=== PATIENT | male | born 1960 | race Hispanic/Latino ===

== ENCOUNTER → 2019-12-13 | Outpatient (CLI) | payer OTHER ==
[~2019-12-13] MED LIST: AMLO10TA7 PO; ASPI-1197 PO; CHOL100040 PO; METF-446 PO; METO25 PO; MULT-1258 PO; PRAV40TA3 PO; TELM20TA8 PO; TELM40TA5 PO; TYL3 PO
== END | disposition home or self-care (01) ==
LOC: SHCH 10:50
PROVIDERS: ATTEND Internal Medicine Cardiovascular Disease
DX: I07.9 Rheumatic tricuspid valve disease, unspecified (principal); I65.23 Occlusion and stenosis of bilateral carotid arteries; R01.1 Cardiac murmur, unspecified
CPT/HCPCS: 93306; 93880